=== PATIENT | male | born 1985 | race Caucasian/White ===

== ENCOUNTER → 2018-01-18 | Emergency (ER) | payer OTHER ==
[~2018-01-18] VITALS: Ht 190.5 cm; Wt 90.7 kg
== END | disposition left against medical advice (07) ==
LOC: ER 00:17
DX: Z53.20 Procedure and treatment not carried out because of patient's decision for unspecified reasons (principal)

== ENCOUNTER 2022-09-20 05:10 | Emergency (ER) | payer OTHER ==
[~2022-09-20] VITALS: Ht 190.5 cm; Wt 104.3 kg
== END 2022-09-20 16:15 | disposition home or self-care (01) ==
LOC: ER 05:10
DX: T17.228A Food in pharynx causing other injury, initial encounter (principal); R13.10 Dysphagia, unspecified; R59.1 Generalized enlarged lymph nodes